=== PATIENT | male | born 1940 | race Caucasian/White ===

== ENCOUNTER 2023-08-28 20:43 | Emergency (ER) | payer SELFPAY ==
[~2023-08-28] VITALS: Ht 172.7 cm; Wt 65.9 kg
[2023-08-28 20:45] VITALS: TEMP 98.3
[2023-08-28 21:26] VITALS: BP 128/74; PULSE 71; RESP 14; O2SAT 98
== END 2023-08-28 21:33 | disposition home or self-care (01) ==
LOC: ER 20:43
DX: R55 Syncope and collapse (principal); R11.0 Nausea
CPT/HCPCS: 93005; 99284